=== PATIENT | female | born 1980 | race Caucasian/White ===

== ENCOUNTER → 2019-04-28 | Emergency (ER) | payer OTHER ==
[~2019-04-28] VITALS: Ht 165.1 cm; Wt 62.1 kg
[~2019-04-28] MED LIST: DEPAKOTE SPRIN125 MG
== END | disposition left against medical advice (07) ==
LOC: ER 03:34
DX: Z53.20 Procedure and treatment not carried out because of patient's decision for unspecified reasons (principal)

== ENCOUNTER 2022-06-23 12:13 | Emergency (ER) | payer OTHER ==
[~2022-06-23] VITALS: Ht 162.6 cm; Wt 59.0 kg
[2022-06-23] MEDS ORDERED: DEPAKOTE ER250 MG PO (13:05)
== END 2022-06-23 16:06 | disposition home or self-care (01) ==
LOC: ER 12:13
DX: R05.9 Cough, unspecified (principal); Z20.822 Contact with and (suspected) exposure to COVID-19

== ENCOUNTER 2024-05-13 22:54 | Emergency (ER) | payer OTHER ==
[~2024-05-13] VITALS: Ht 165.1 cm; Wt 65.3 kg
[~2024-05-13 22:54] MED LIST changes: +DEPAKOTE ER250 MG PO
[2024-05-13] MEDS ORDERED: SIMVASTATIN5 MG PO (23:14)
== END 2024-05-14 00:21 | disposition home or self-care (01) ==
LOC: ER 22:54
DX: R51.9 Headache, unspecified (principal); Z91.013 Allergy to seafood